=== PATIENT | male | born 1950 | race Caucasian/White ===

== ENCOUNTER → 2018-01-05 | Outpatient (CLI) | payer MEDICARE ==
[2018-01-05 19:07] LABS: PSA SCREENING 0.97 NG/ML (< 4.0)
== END ==
LOC: M SMT 14:47
DX: Z12.5 Encounter for screening for malignant neoplasm of prostate (principal)
CPT/HCPCS: G0103

== ENCOUNTER → 2021-03-02 | Outpatient (CLI) | payer MEDICARE ==
[~2021-03-02] MED LIST: CIPR-249 PO; CIPR500S PO; OXYC10TA12 PO; PERCOCET PO; TYLE650T30 PO
== END ==
LOC: M RAD 16:36
PROVIDERS: ATTEND Physician Assistant
DX: R10.13 Epigastric pain (principal); N20.0 Calculus of kidney; K57.30 Diverticulosis of large intestine without perforation or abscess without bleeding

== ENCOUNTER → 2021-06-06 | Outpatient (CLI) | payer MEDICARE ==
[~2021-06-06] MED LIST changes: +ACET1TAB16 PO
== END ==
LOC: M LABSMTC 09:46
PROVIDERS: ATTEND Anesthesiology
DX: Z01.818 Encounter for other preprocedural examination (principal); Z11.52 Encounter for screening for COVID-19

== ENCOUNTER 2021-06-11 06:01 | Day surgery (SDC) | payer MEDICARE ==
[~2021-06-11] VITALS: Ht 180.3 cm; Wt 104.4 kg
[2021-06-11] MEDS ORDERED: ceFAZolin SOD 2 GM in IV 1 EA IV ONE (06:10)
[2021-06-11] MEDS ORDERED: LR 1,000 ML IV ONE (06:10)
[2021-06-11] MEDS ORDERED: CONRAY-60 60% 50ML VIAL (Q9961) As Ordered ONE (07:08)
[2021-06-11] MEDS ORDERED: propofoL 200 MG/20 ML VIAL As Ordered ONE (07:22)
[2021-06-11] MEDS ORDERED: LIDOCAINE 2% 100MG/5ML SDV (FOR ANES.) As Ordered ONE (07:22)
[2021-06-11] MEDS ORDERED: MIDAZOLAM INJ 2MG/2ML VIAL (J2250 PER 1MG) As Ordered ONE (07:22)
[2021-06-11] MEDS ORDERED: ONDANSETRON 4MG/2ML VIAL As Ordered ONE (07:22)
[2021-06-11] MEDS ORDERED: dexameTHASONE 4 MG/ML 1ML VIAL (J1100 PER 1MG) As Ordered ONE (07:22)
[2021-06-11] MEDS ORDERED: fentaNYL 100 MCG/2 ML INJECTION As Ordered ONE (07:22)
[2021-06-11] MEDS ORDERED: SEVOFLURANE INHAL SOLN 250 ML BTL As Ordered ONE (07:47)
[2021-06-11] MEDS ORDERED: METOCLOPRAMIDE INJ 10MG/2ML VIAL (J2765 PER 1) As Ordered ONE (07:47)
[2021-06-11] MEDS ORDERED: LIDOCAINE 5% OINT 30GM TUBE As Ordered ONE (07:47)
[2021-06-11] MEDS ORDERED: ACETAMINOPHEN 1000MG 100ML IV BTL (OFIRMEV) (J0131 PER 10MG) As Ordered ONE (07:58)
[2021-06-11] MEDS ORDERED: ePHEDrine SULFATE 25 MG/5 ML(5MG/ML) SYRINGE As Ordered ONE (08:14)
[2021-06-11] MEDS ORDERED: PERCOCET 5MG/325MG TAB PO PRN (09:10)
[2021-06-11] MEDS ORDERED: LR 1,000 ML IV SCH (09:10)
[2021-06-11] MEDS ORDERED: oxyCODONE 5MG TAB PO PRN (09:10)
[2021-06-11] MEDS ORDERED: fentaNYL 100 MCG/2 ML INJECTION IV PRN (09:10)
[2021-06-11] MEDS ORDERED: ONDANSETRON 4MG/2ML VIAL IV PRN (09:10)
[2021-06-11] MEDS ORDERED: HYDROMORPHONE HCL 0.5 MG/ 0.5 ML SYRINGE (J1170 PER 1) IV PRN (09:10)
[2021-06-11 09:59] VITALS: BP 133/80
== END 2021-06-11 10:00 | disposition home or self-care (01) ==
LOC: M SDC 06:01
PROVIDERS: ATTEND Urology
DX: N20.0 Calculus of kidney (principal); I25.10 Atherosclerotic heart disease of native coronary artery without angina pectoris; Z95.1 Presence of aortocoronary bypass graft; Z79.891 Long term (current) use of opiate analgesic; F17.210 Nicotine dependence, cigarettes, uncomplicated
CPT/HCPCS: 52356; 74420; 82365; C1769; C1894; C2617; J0131; J0690; J1100; J2250; J2405; J2765; J3010; Q9961

== ENCOUNTER → 2023-10-01 | Outpatient (CLI) | payer MEDICARE ==
[~2023-10-01] MED LIST changes: -ACET1TAB16 PO; +ACET300T48 PO
== END ==
LOC: M RAD 12:12
PROVIDERS: ATTEND Urology
DX: Z53.9 Procedure and treatment not carried out, unspecified reason (principal)

== ENCOUNTER → 2023-10-02 | Outpatient (CLI) | payer MEDICARE | LOC: M PLAIMG 12:39 | PROVIDERS: ATTEND Urology | DX: N20.0 Calculus of kidney (principal); K57.30 Diverticulosis of large intestine without perforation or abscess without bleeding; K76.0 Fatty (change of) liver, not elsewhere classified ==

== ENCOUNTER → 2023-10-08 | Outpatient (REF) | payer MEDICARE ==
[2023-10-08 17:48] LABS: APPEARANCE, URINE CLEAR (CLEAR); BACTERIA, URINE AUTO NEGATIVE (NEGATIVE); BILIRUBIN, URINE AUTO NEGATIVE (NEGATIVE); BLOOD, URINE BLOOD NEGATIVE (NEGATIVE); COLOR, URINE YELLOW (YELLOW); GLUCOSE, URINE (UA) AUTO NEGATIVE (NEGATIVE); KETONE, URINE AUTO NEGATIVE (NEGATIVE); LEUKOCYTE ESTERASE, URINE AUTO TRACE (NEGATIVE); NITRITE, URINE AUTO NEGATIVE (NEGATIVE); PROTEIN, URINE AUTO NEGATIVE (NEGATIVE); RBC, URINE AUTO 0 /HPF (0-3); SPECIFIC GRAVITY URINE AUTO 1.008 (1.002-1.035); SQUAMOUS EPITHELIAL CELL UR AU 0 /HPF (0-6); UROBILINOGEN, URINE AUTO 0.2 mg/dL (0.0-2.0); WBC, URINE AUTO 2 /HPF (0-3)
== END ==
LOC: M LABSMT 12:17
PROVIDERS: ATTEND Urology
DX: N39.0 Urinary tract infection, site not specified (principal)

== ENCOUNTER 2024-03-09 10:46 | Emergency (ER) | payer MEDICARE ==
[~2024-03-09] VITALS: Ht 180.3 cm; Wt 102.0 kg
[2024-03-09 12:41] LABS: BASO % 0.2 % (0.0-1.0); EOS # 0.1 10^3/uL (0.0-0.5); EOS % 2.7 % (0.0-3.0); HEMATOCRIT 44.4 % (42.0-52.0); HEMOGLOBIN 15.5 g/dl (13.5-17.5); LYMPH # 1.2 10^3/uL (1.5-5.0); LYMPH % 25.4 % (24.0-44.0); MEAN CORPUSCULAR HEMOGLOBIN 30.9 pg (27.0-33.0); MEAN CORPUSCULAR HGB CONC 34.9 g/dl (32.0-36.5); MEAN CORPUSCULAR VOLUME 88.4 fl (80.0-96.0); MONO # 0.4 10^3/uL (0.0-0.8); MONO % 7.6 % (2.0-8.0); NEUTROPHILS % 63.9 % (36.0-66.0); PLATELET COUNT, AUTOMATED 151 10^3/uL (150-450); RED BLOOD COUNT 5.02 10^6/uL (4.30-6.10); WHITE BLOOD COUNT 4.8 10^3/uL (4.0-10.0)
[2024-03-09] MEDS ORDERED: ISOVUE-370 76% 100ML VIAL As Ordered ONE (12:44)
[2024-03-09 13:20] LABS: APPEARANCE, URINE CLEAR (CLEAR); BACTERIA, URINE AUTO NEGATIVE (NEGATIVE); BILIRUBIN, URINE AUTO NEGATIVE (NEGATIVE); BLOOD, URINE BLOOD NEGATIVE (NEGATIVE); COLOR, URINE STRAW (YELLOW); GLUCOSE, URINE (UA) AUTO NEGATIVE (NEGATIVE); KETONE, URINE AUTO NEGATIVE (NEGATIVE); LEUKOCYTE ESTERASE, URINE AUTO NEGATIVE (NEGATIVE); MUCUS, URINE SMALL (NEGATIVE); NITRITE, URINE AUTO NEGATIVE (NEGATIVE); PROTEIN, URINE AUTO NEGATIVE (NEGATIVE); RBC, URINE AUTO 0 /HPF (0-3); SPECIFIC GRAVITY URINE AUTO 1.006 (1.002-1.035); SQUAMOUS EPITHELIAL CELL UR AU 0 /HPF (0-6); UROBILINOGEN, URINE AUTO 0.2 mg/dL (0.0-2.0); WBC, URINE AUTO 4 /HPF (0-3)
[2024-03-09 15:12] VITALS: BP 134/76; TEMP 96.8; O2SAT 97
== END 2024-03-09 15:21 | disposition home or self-care (01) ==
LOC: M ED 10:46
DX: K57.30 Diverticulosis of large intestine without perforation or abscess without bleeding (principal); N20.0 Calculus of kidney; N40.0 Benign prostatic hyperplasia without lower urinary tract symptoms; R10.32 Left lower quadrant pain; N43.3 Hydrocele, unspecified; Z79.1 Long term (current) use of non-steroidal anti-inflammatories (NSAID)
CPT/HCPCS: 36415; 74177; 76870; 80047; 81001; 85025; 93976; 99284; Q9967

== ENCOUNTER → 2024-06-08 | Outpatient (CLI) | payer MEDICARE ==
[2024-06-08 14:02] LABS: HEMATOCRIT 47.5 % (42.0-52.0); MEAN CORPUSCULAR HEMOGLOBIN 30.5 pg (27.0-33.0); MEAN CORPUSCULAR HGB CONC 33.7 g/dl (32.0-36.5); MEAN CORPUSCULAR VOLUME 90.5 fl (80.0-96.0); PLATELET COUNT, AUTOMATED 153 10^3/uL (150-450); RED BLOOD COUNT 5.25 10^6/uL (4.30-6.10); WHITE BLOOD COUNT 6.5 10^3/uL (4.0-10.0)
[2024-06-08 14:21] LABS: BLOOD UREA NITROGEN 20 MG/DL (9-23); CALCIUM LEVEL 9.9 MG/DL (8.3-10.6); CARBON DIOXIDE LEVEL 29 MMOL/L (20-31); CHLORIDE LEVEL 103 MMOL/L (98-107); CREATININE FOR GFR 1.04 MG/DL (0.70-1.30); GLOMERULAR FILTRATION RATE > 60.0 (>42); GLUCOSE, FASTING 104 MG/DL (74-106); POTASSIUM SERUM 4.6 MMOL/L (3.5-5.1); SODIUM LEVEL 140 MMOL/L (136-145)
== END ==
LOC: M ADAMS 09:06
PROVIDERS: ATTEND Urology
DX: Z01.818 Encounter for other preprocedural examination (principal); N20.0 Calculus of kidney

== ENCOUNTER 2024-06-16 11:36 | Day surgery (SDC) | payer MEDICARE ==
[~2024-06-16] VITALS: Ht 177.8 cm; Wt 103.3 kg
[2024-06-16] MEDS ORDERED: LR 1,000 ML IV SCH (11:50)
[2024-06-16] MEDS ORDERED: LIDOCAINE 2% 100MG/5ML SDV (FOR ANES.) As Ordered ONE (12:03)
[2024-06-16] MEDS ORDERED: propofoL 200 MG/20 ML VIAL As Ordered ONE (12:03)
[2024-06-16] MEDS ORDERED: ONDANSETRON 4MG 2ML VIAL As Ordered ONE (12:03)
[2024-06-16] MEDS ORDERED: fentaNYL 100 MCG/2 ML INJECTION As Ordered ONE (12:07)
[2024-06-16] MEDS: ceFAZolin SOD 2 GM IV ONCE IV ONE (13:22)
[2024-06-16] MEDS ORDERED: OXYC1TAB23 PO (13:22)
[2024-06-16] MEDS ORDERED: ACETAMINOPHEN 1000MG/100ML IV BAG As Ordered ONE (13:23)
[2024-06-16] MEDS: ISOVUE-300 61% 100ML VIAL As Ordered ONE (14:30)
[2024-06-16] MEDS ORDERED: FLOM0.4C39 PO (15:10)
[2024-06-16 15:50] VITALS: BP 152/77; TEMP 97.9; O2SAT 97
== END 2024-06-16 16:52 | disposition home or self-care (01) ==
LOC: M SDC 11:36
PROVIDERS: ATTEND Urology
DX: N20.0 Calculus of kidney (principal); I25.10 Atherosclerotic heart disease of native coronary artery without angina pectoris; F17.210 Nicotine dependence, cigarettes, uncomplicated; Z95.1 Presence of aortocoronary bypass graft; Z87.442 Personal history of urinary calculi
CPT/HCPCS: 52356; 76000; 82365; C1769; C1894; C2617; J0131; J0690; J1100; J2405; J3010; Q9967

== ENCOUNTER 2024-07-13 07:20 | Day surgery (SDC) | payer MEDICARE ==
[~2024-07-13] VITALS: Ht 180.3 cm; Wt 102.0 kg
[~2024-07-13 07:20] MED LIST changes: +OXYC1TAB23 PO; +TAMS-18 PO
[2024-07-13] MEDS ORDERED: LIDOCAINE 2% 100MG/5ML SDV (FOR ANES.) As Ordered ONE (07:36)
[2024-07-13] MEDS ORDERED: propofoL 200 MG/20 ML VIAL As Ordered ONE (07:36)
[2024-07-13 08:57] VITALS: TEMP 96.8
[2024-07-13 09:17] VITALS: BP 114/59; O2SAT 98
== END 2024-07-13 09:20 | disposition home or self-care (01) ==
LOC: M OPP 07:20
PROVIDERS: ATTEND Surgery
DX: Z12.11 Encounter for screening for malignant neoplasm of colon (principal); D12.3 Benign neoplasm of transverse colon; D12.2 Benign neoplasm of ascending colon; K57.30 Diverticulosis of large intestine without perforation or abscess without bleeding; K58.9 Irritable bowel syndrome, unspecified; K64.1 Second degree hemorrhoids; I25.10 Atherosclerotic heart disease of native coronary artery without angina pectoris; Z95.1 Presence of aortocoronary bypass graft; F17.210 Nicotine dependence, cigarettes, uncomplicated

== ENCOUNTER → 2025-01-26 | Outpatient (CLI) | payer MEDICARE | LOC: M ADAMS 12:14 | PROVIDERS: ATTEND Urology | DX: N20.0 Calculus of kidney (principal) ==